=== PATIENT | male | born 1965 ===

== ENCOUNTER 2023-02-02 05:50 | Day surgery (SDC) | payer OTHER ==
[~2023-02-02] VITALS: Ht 175.3 cm; Wt 63.5 kg
[~2023-02-02 05:50] MED LIST: CLONAZE PO; GABA PO
== END 2023-02-02 19:40 | disposition home or self-care (01) ==
LOC: CIR.AMB 05:50
PROVIDERS: ATTEND Colon & Rectal Surgery
DX: K64.8 Other hemorrhoids (principal); K64.4 Residual hemorrhoidal skin tags; K64.3 Fourth degree hemorrhoids; K92.2 Gastrointestinal hemorrhage, unspecified; E78.00 Pure hypercholesterolemia, unspecified; F12.90 Cannabis use, unspecified, uncomplicated; G62.9 Polyneuropathy, unspecified